=== PATIENT | male | born 1990 | race African-American/Black ===

== ENCOUNTER 2018-02-25 18:00 | Inpatient (IN) | payer OTHER ==
[~2018-02-25] VITALS: Ht 160 cm; Wt 58.5 kg
[2018-02-25 19:49] LABS: PLATELET COUNT 180 x10^3mcL (130-400); RED CELL DISTRIBUTION WIDTH 14.4 % (11.5-14.5)
[2018-02-25 20:07] LABS: BASOPHIL % 0 % (0-2)
[2018-02-25 20:09] LABS: ALBUMIN 4.5 g/dL (3.4-5.0); ALKALINE PHOSPHATASE 86 U/L (46-116); ALT/SGPT 42 U/L (16-63); AMYLASE 47 U/L (25-115); AST/SGOT 35 U/L (15-37); CALCIUM 9.2 mg/dL (8.5-10.1); CARBON DIOXIDE 30.1 mmol/L (21-32); CHLORIDE SERUM 100 mmol/L (98-107); CREATININE SERUM 1.2 mg/dL (0.7-1.3); GFR1 > 60 mL/min; GLUCOSE SERUM 124 mg/dL (74-106); LIPASE 105 IU/L (73-393); POTASSIUM SERUM 3.8 mmol/L (3.5-5.1); SODIUM SERUM 141 mmol/L (136-145)
[2018-02-25 20:12] LABS: TOTAL PROTEIN, SERUM 8.9 g/dL (6.4-8.2)
[2018-02-25 23:07] VITALS: BP 108/65
[2018-02-25 23:22] VITALS: Ht 160 cm; Wt 58.5 kg
[2018-02-26 00:06] LABS: CHOLESTEROL/HDL RATIO 3.7; MAGNESIUM 2.2 mg/dL (1.8-2.4); PHOSPHOROUS 4.4 mg/dL (2.5-4.9)
[2018-02-26 00:13] LABS: FREE T4 0.84 ng/dL (0.76-1.46); FREE THYROXINE INDEX 2.2 ug/dL (1.4-4.5); T4(THYROXINE) 7.2 ug/dL (4.7-13.3)
[2018-02-26 00:24] LABS: T3 TOTAL 1.1 ng/mL
[2018-02-26 04:40] VITALS: BP 94/47
[2018-02-26 04:43] VITALS: BP 92/43
[2018-02-26 06:32] LABS: PLATELET COUNT 182 x10^3mcL (130-400); RED CELL DISTRIBUTION WIDTH 14.3 % (11.5-14.5)
[2018-02-26 06:40] VITALS: BP 98/55
[2018-02-26 06:47] LABS: CALCIUM 7.6 mg/dL (8.5-10.1); CARBON DIOXIDE 25.9 mmol/L (21-32); CHLORIDE SERUM 108 mmol/L (98-107); CREATININE SERUM 1.1 mg/dL (0.7-1.3); GFR1 > 60 mL/min; GLUCOSE SERUM 101 mg/dL (74-106); MAGNESIUM 1.9 mg/dL (1.8-2.4); PHOSPHOROUS 3.4 mg/dL (2.5-4.9); POTASSIUM SERUM 3.7 mmol/L (3.5-5.1); SODIUM SERUM 141 mmol/L (136-145)
[2018-02-26 07:10] LABS: BASOPHIL % 0 % (0-2)
[2018-02-26 13:13] LABS: microscopic required? NO
[2018-02-26 13:38] LABS: UA SPECIFIC GRAVITY 1.025 (1.005-1.035); urine erythrocyte NEGATIVE (NEGATIVE)
[2018-02-26 14:16] LABS: AMPHETAMINE QUAL UR NONE DETECTED (NEG <=1000)
[2018-02-26 15:34] VITALS: BP 113/64
[2018-02-26 18:00] VITALS: BP 94/55
[2018-02-26 21:37] VITALS: BP 108/52
[2018-02-27 05:57] VITALS: BP 111/59
[2018-02-27 06:18] LABS: BASOPHIL % 0.3 % (0-2); PLATELET COUNT 179 x10^3mcL (130-400)
[2018-02-27 06:29] LABS: CALCIUM 8.1 mg/dL (8.5-10.1); CARBON DIOXIDE 29.8 mmol/L (21-32); CHLORIDE SERUM 105 mmol/L (98-107); CREATININE SERUM 1.2 mg/dL (0.7-1.3); GFR1 > 60 mL/min; GLUCOSE SERUM 90 mg/dL (74-106); POTASSIUM SERUM 3.5 mmol/L (3.5-5.1); SODIUM SERUM 139 mmol/L (136-145)
[2018-02-27 10:30] VITALS: BP 96/56
[2018-02-27 12:02] VITALS: BP 96/56
== END 2018-02-27 12:35 | disposition home or self-care (01) | DRG 392 ==
LOC: ED 18:00 → DU 21:39 → MU 02-26 16:14
PROVIDERS: Emergency Medicine; Family Medicine
DX: K52.9 Noninfective gastroenteritis and colitis, unspecified (principal); T62.91XA Toxic effect of unspecified noxious substance eaten as food, accidental (unintentional), initial encounter; E86.0 Dehydration; D72.829 Elevated white blood cell count, unspecified; E78.5 Hyperlipidemia, unspecified; Z90.89 Acquired absence of other organs; Q90.9 Down syndrome, unspecified; Y92.89 Other specified places as the place of occurrence of the external cause
CPT/HCPCS: 83880; 84439; 87046; 87046-59; J0696; J2270; J2405; J7030; J7040; Q0092